=== PATIENT | female | born 1955 | race Hispanic/Latino ===

== ENCOUNTER 2021-12-12 12:30 | Inpatient (IN) | payer MEDICARE, MEDICAID ==
[2021-12-06 14:34] VITALS: BMI 28.8
[2021-12-12 13:39] LABS: Hemoglobin 12.5 g/dL (12.0-15.5); Mean Corpuscular HGB CONC 33.8 g/dL (32.0-36.0); Mean Corpuscular Hemoglobin 29.4 pg (27.0-33.0); Mean Corpuscular Volume 87.1 fl (81.6-98.3); Mean Platelet Volume 12.1 fl (7.4-10.4); Platelet Count 177 10x3/uL (150-450); RBC Distribution Width 13.4 % (11.5-14.5); Red Blood Cell (RBC) Count 4.25 10x6/uL (3.90-5.03); White Blood Cell (WBC) Count 7.3 10x3/uL (3.5-10.5)
[2021-12-12 13:58] LABS: Anion Gap 15 mmol/L (10-20); BUN (Urea Nitrogen) 17 mg/dL (9.8-20.1); Calc. Creatinine Clearance 0 mL/min (70-130); Calcium 9.6 mg/dL (7.8-10.44); Carbon Dioxide 22 mmol/L (23-31); Chloride 107 mmol/L (98-107); Glucose 133 mg/dL (80-115); Potassium 4.2 mmol/L (3.5-5.1); Sodium 140 mmol/L (136-145)
[2021-12-12 14:04] LABS: PTT 29.9 sec (22.0-33.0); Prothrombin Time 11.3 sec (9.5-12.1)
[2021-12-12 21:07] LABS: SARS-CoV-2 PCR by NAA Not Detected (NotDetected)
[2021-12-17] MEDS ORDERED: Lidocaine 1% MPF 2 ML VIAL ONE (06:34)
[2021-12-17] MEDS ORDERED: Famotidine/PF 20 mg/2ml Vial ONE (06:34)
[2021-12-17] MEDS ORDERED: PROPOFOL 40 ML ONE (06:35)
[2021-12-17] MEDS ORDERED: Dexamethasone 20 MG/5 ML VIAL ONE (06:36)
[2021-12-17] MEDS ORDERED: Fentanyl 100 MCG/2 ML VIAL ONE ×2 (06:36)
[2021-12-17] MEDS ORDERED: Glycopyrrolate 0.2 MG/ML 5 ML SYRINGE ONE (06:36)
[2021-12-17] MEDS ORDERED: Ondansetron PF 4 MG/2 ML Vial ONE ×3 (06:36→10:58)
[2021-12-17] MEDS ORDERED: Lidocaine 1% PF 5 ML VIAL ONE ×2 (06:36→09:43)
[2021-12-17] MEDS ORDERED: Phenylephrine 10 MG/ML VIAL ONE (06:39)
[2021-12-17] MEDS ORDERED: Propofol 1,000 MG/100 ML VIAL IV ONE (06:40)
[2021-12-17] MEDS ORDERED: HYDROmorphone 0.5 MG/0.5 ML SYRINGE ONE (06:40)
[2021-12-17] MEDS ORDERED: Ketamine 50 MG/ML (10ML VIAL) ONE (06:41)
[2021-12-17] MEDS ORDERED: Bupivacaine 0.25% HCL 30 ML VIAL ONE (06:47)
[2021-12-17] MEDS ORDERED: PHENYLEPHRINE-NS 100 MCG/ML 10 ML SYRINGE ONE (06:48)
[2021-12-17] MEDS ORDERED: Succinylcholine 200 MG/10 ml SYRINGE FS ONE (06:48)
[2021-12-17] MEDS ORDERED: EPINEPHrine 1 MG/ML AMP ONE (06:48)
[2021-12-17] MEDS ORDERED: ceFAZolin 2 GM/Dextrose 50 ML IVPB ONE (07:03)
[2021-12-17] MEDS ORDERED: Ketorolac Tromethamine 30 MG/ML VIAL ONE (08:51)
[2021-12-17] MEDS ORDERED: CEFAZOLIN 1 GM VIAL ONE (10:43)
[2021-12-17] MEDS ORDERED: Esmolol 100 MG/10 ML VIAL ONE (11:21)
[2021-12-17] MEDS ORDERED: Morphine 4 MG/ML VIAL SLOW IVP PRN (11:45)
[2021-12-17] MEDS ORDERED: TETANUS AND DIPHTHERIA TOX/PF 0.5 ML DISP.SYRIN IM SCH (11:45)
[2021-12-17] MEDS ORDERED: Nitroglycerin 0.4 MG TAB (25 Tab Bottle) SL PRN (11:47)
[2021-12-17] MEDS ORDERED: tiZANidine HCl 4 MG TAB PO PRN (11:47)
[2021-12-17] MEDS: HYDROcodone/Acetaminophen 10/325 mg Tablet PO PRN ×2 (16:26→20:30)
[2021-12-17] MEDS: Icosapent Ethyl 1 GM CAPSULE PO SCH (18:36)
[2021-12-17] MEDS: ceFAZolin 2 GM/Dextrose 50 ML 2 GM in Premix Bag 1 BAG IVPB SCH (20:30)
[2021-12-17] MEDS: Mometasone/Formoterol 200/5 60 PUFF INH SCH (20:31)
[2021-12-17] MEDS: metFORMIN 500 MG TAB PO SCH (20:31)
[2021-12-17] MEDS: Aspirin 81 mg Enteric Coated Tablet PO SCH (20:31)
[2021-12-17] MEDS ORDERED: traZODone HCl 50 MG TAB PO SCH (21:00)
[2021-12-18] MEDS ORDERED: Levothyroxine Sodium 50 MCG TAB PO SCH (06:00)
[2021-12-18] MEDS: ceFAZolin 2 GM/Dextrose 50 ML 2 GM in Premix Bag 1 BAG IVPB SCH ×2 (06:37→12:02)
[2021-12-18] MEDS: Mometasone/Formoterol 200/5 60 PUFF INH SCH (08:54)
[2021-12-18] MEDS ORDERED: Loratadine 10 MG TAB PO SCH (09:00)
[2021-12-18] MEDS ORDERED: NIFEdipine XL 30 MG TAB PO SCH (09:00)
[2021-12-18] MEDS ORDERED: Fluticasone Propionate Nasal Spray 16 gm Bottle NASAL SCH (09:00)
[2021-12-18] MEDS ORDERED: Magnesium Gluconate 500 MG TAB PO SCH (09:00)
[2021-12-18] MEDS ORDERED: Azelastine 137 MCG/Spray 30 ML NS SCH (09:00)
[2021-12-18] MEDS ORDERED: Montelukast Sodium 10 mg Tablet PO SCH (09:00)
[2021-12-18] MEDS ORDERED: Gabapentin 300 MG CAP PO SCH (09:00)
[2021-12-18] MEDS ORDERED: Atorvastatin Calcium 40 MG TAB PO SCH (09:00)
[2021-12-18] MEDS: Icosapent Ethyl 1 GM CAPSULE PO SCH ×2 (11:50→17:03)
[2021-12-18] MEDS: Aspirin 81 mg Enteric Coated Tablet PO SCH (11:53)
[2021-12-18] MEDS: metFORMIN 500 MG TAB PO SCH (11:55)
[2021-12-18] MEDS: HYDROcodone/Acetaminophen 10/325 mg Tablet PO PRN (12:37)
[2021-12-18 12:55] VITALS: TEMP 98.1
[2021-12-18 14:55] VITALS: BP 126/70
== END 2021-12-18 18:43 | disposition home or self-care (01) | DRG 455 ==
LOC: CSHTELE 12-17 05:50
PROVIDERS: ADMIT Orthopaedic Surgery; ATTEND Orthopaedic Surgery
PROC: 0SG30AJ Fusion of Lumbosacral Joint with Interbody Fusion Device, Posterior Approach, Anterior Column, Open Approach (ICD-10-PCS; principal; 2021-12-17)
PROC: 0SG3071 Fusion of Lumbosacral Joint with Autologous Tissue Substitute, Posterior Approach, Posterior Column, Open Approach (ICD-10-PCS; 2021-12-17)
PROC: 0SB40ZZ Excision of Lumbosacral Disc, Open Approach (ICD-10-PCS; 2021-12-17)
PROC: 0SB20ZZ Excision of Lumbar Vertebral Disc, Open Approach (ICD-10-PCS; 2021-12-17)
PROC: 01NB0ZZ Release Lumbar Nerve, Open Approach (ICD-10-PCS; 2021-12-17)
PROC: 01NR0ZZ Release Sacral Nerve, Open Approach (ICD-10-PCS; 2021-12-17)
PROC: 0SG00AJ Fusion of Lumbar Vertebral Joint with Interbody Fusion Device, Posterior Approach, Anterior Column, Open Approach (ICD-10-PCS; 2021-12-17)
PROC: 0SG0071 Fusion of Lumbar Vertebral Joint with Autologous Tissue Substitute, Posterior Approach, Posterior Column, Open Approach (ICD-10-PCS; 2021-12-17)
DX: M48.061 Spinal stenosis, lumbar region without neurogenic claudication (principal); M43.17 Spondylolisthesis, lumbosacral region; M54.17 Radiculopathy, lumbosacral region; M54.16 Radiculopathy, lumbar region; M41.86 Other forms of scoliosis, lumbar region; M41.87 Other forms of scoliosis, lumbosacral region; M43.16 Spondylolisthesis, lumbar region; Z20.822 Contact with and (suspected) exposure to COVID-19
CPT/HCPCS: 36416; 72100; 76000; 80048; 85027; 85610; 85730; 86850; 86900; 86901; 94760; C1713; C1763; C1889; J0171; J0690; J1100; J1170; J1885; J2370; J2405; J2704; J3010; S0020; S0028; U0003; U0005

== ENCOUNTER 2021-12-12 12:35 | Outpatient (CLI) | payer MEDICARE ==
[2021-12-12 13:39] LABS: Hemoglobin 12.5 g/dL (12.0-15.5); Mean Corpuscular HGB CONC 33.8 g/dL (32.0-36.0); Mean Corpuscular Hemoglobin 29.4 pg (27.0-33.0); Mean Corpuscular Volume 87.1 fl (81.6-98.3); Mean Platelet Volume 12.1 fl (7.4-10.4); Platelet Count 177 10x3/uL (150-450); RBC Distribution Width 13.4 % (11.5-14.5); Red Blood Cell (RBC) Count 4.25 10x6/uL (3.90-5.03); White Blood Cell (WBC) Count 7.3 10x3/uL (3.5-10.5)
[2021-12-12 13:58] LABS: Anion Gap 15 mmol/L (10-20); BUN (Urea Nitrogen) 17 mg/dL (9.8-20.1); Calc. Creatinine Clearance 0 mL/min (70-130); Calcium 9.6 mg/dL (7.8-10.44); Carbon Dioxide 22 mmol/L (23-31); Chloride 107 mmol/L (98-107); Glucose 133 mg/dL (80-115); Potassium 4.2 mmol/L (3.5-5.1); Sodium 140 mmol/L (136-145)
[2021-12-12 14:04] LABS: PTT 29.9 sec (22.0-33.0); Prothrombin Time 11.3 sec (9.5-12.1)
[2021-12-12 21:07] LABS: SARS-CoV-2 PCR by NAA Not Detected (NotDetected)
== END 2021-12-12 12:36 | disposition home or self-care (01) ==
LOC: CSHLAB 12:35
PROVIDERS: ATTEND Orthopaedic Surgery
DX: Z01.818 Encounter for other preprocedural examination (principal); Z20.822 Contact with and (suspected) exposure to COVID-19; M54.50 Low back pain, unspecified; M54.17 Radiculopathy, lumbosacral region
CPT/HCPCS: 80048; 85027; 85610; 85730; 86850; 86900; 86901; 93005; 93010; U0003; U0005